=== PATIENT | female | born 2000 | race Hispanic/Latino ===

== ENCOUNTER 2018-09-02 18:51 | Emergency (ER) | payer OTHER ==
[2018-09-02] MEDS ORDERED: Ibuprofen 600 MG TAB ONE (19:20)
[2018-09-02 19:39] LABS: Bilirubin Negative (Negative); Blood, Urine Negative (Negative); Clarity Clear (Clear); Glucose, Urine (Dipstick) Negative (Negative); Leukocyte Negative (Negative); Nitrite Negative (Negative); Protein, Urine (Dipstick) Negative (Neg-Trace); Urobilinogen 0.2 mg/dL (0.2-1.0)
[2018-09-02 19:42] LABS: #Basophils 0.1 thou/uL (0.0-0.2); #Eosinphils 0.1 thou/uL (0.0-0.7); #Lymphocytes 2.2 thou/uL (1.20-3.40); #Monocytes 0.3 thou/uL (0.11-0.59); #Neutrophils 8.9 thou/uL (1.40-6.50); %Basophils 0.9 % (0.0-1.0); %Eosinophils 1.1 % (0.0-10.0); %Lymphocytes 19.1 % (28.0-48.0); %Monocytes 2.3 % (0.0-4.0); %Neutrophils 76.6 % (31.0-61.0); Hemoglobin 12.2 g/dL (12.0-16.0); Mean Corpuscular HGB CONC 32.3 g/dL (32.0-36.0); Mean Corpuscular Hemoglobin 26.9 pg (25.0-35.0); Mean Corpuscular Volume 83.3 fL (78.0-98.0); Mean Platelet Volume 11.9 fL (7.4-10.4); Platelet Count 183 thou/uL (130-400); RBC Distribution Width 12.1 % (11.5-14.5); Red Blood Cell (RBC) Count 4.53 mill/uL (4.00-5.20); White Blood Cell (WBC) Count 11.6 thou/uL (4.8-10.8)
[2018-09-02 19:55] LABS: ALT (SGPT) 27 U/L (8-55); AST (SGOT) 18 U/L (5-34); Albumin 4.1 g/dL (3.5-5.0); Alkaline Phosphatase 58 U/L (40-150); Anion Gap 14 mmol/L (10-20); BUN (Urea Nitrogen) 8 mg/dL (7.0-18.7); Bilirubin, Total 0.4 mg/dL (0.2-1.2); Calc. Creatinine Clearance 0 mL/min (70-130); Calcium 9.4 mg/dL (7.8-10.44); Carbon Dioxide 24 mmol/L (22-29); Chloride 105 mmol/L (98-107); Estimated GFR-MDRD Greater than 90; Globulin 2.8 g/dL (2.4-3.5); Glucose 120 mg/dL (70-105); Potassium 3.7 mmol/L (3.5-5.1); Protein, Total 6.9 g/dL (6.0-8.3); Sodium 139 mmol/L (136-145)
== END 2018-09-02 20:10 | disposition home or self-care (01) ==
LOC: SCSER 18:51
DX: R10.30 Lower abdominal pain, unspecified (principal); I10 Essential (primary) hypertension
CPT/HCPCS: 36415; 80053; 81003; 84702; 85025; 93005

== ENCOUNTER 2023-06-24 14:48 | Outpatient (CLI) | payer BC | END 2023-06-24 14:49 | disposition home or self-care (01) | LOC: DTY/OP 14:48 | PROVIDERS: ATTEND Surgery | DX: E66.01 Morbid (severe) obesity due to excess calories (principal) | CPT/HCPCS: 97802 ==

== ENCOUNTER 2023-08-30 13:00 | Inpatient (IN) | payer BC ==
[2023-09-07] MEDS ORDERED: Heparin 5,000 UNITS/ML VIAL ONE (11:23)
[2023-09-07] MEDS ORDERED: SUGAMMADEX SODIUM 200 MG/2 ML VIAL ONE (12:33)
[2023-09-07] MEDS ORDERED: fentaNYL PF 100 MCG/2 ML SYRINGE ONE (12:33)
[2023-09-07] MEDS ORDERED: Propofol 500 MG/50 ML VIAL ONE (12:33)
[2023-09-07] MEDS ORDERED: KETAMINE 100 MG/ML (5ML VIAL) ONE (12:33)
[2023-09-07] MEDS ORDERED: Bupivacaine 0.25% HCL 30 ML VIAL ONE (12:34)
[2023-09-07] MEDS ORDERED: EPINEPHrine 1 MG/ML VIAL ONE (12:34)
[2023-09-07] MEDS ORDERED: CEFAZOLIN 2 GM VIAL ONE (12:45)
[2023-09-07] MEDS ORDERED: Sodium Chloride 0.9% 100 ML ONE (12:45)
[2023-09-07] MEDS ORDERED: Rocuronium Bromide 10 MG/ML (10ML VIAL) ONE (12:58)
[2023-09-07] MEDS ORDERED: PROPOFOL 200 MG/20 ML VIAL ONE (12:58)
[2023-09-07] MEDS ORDERED: Esmolol 100 MG/10 ML VIAL ONE (12:58)
[2023-09-07] MEDS ORDERED: Dexamethasone 20 MG/5 ML VIAL ONE (12:58)
[2023-09-07] MEDS ORDERED: Lidocaine 1% PF 5 ML VIAL ONE (12:58)
[2023-09-07] MEDS ORDERED: Ondansetron PF 4 MG/2 ML Vial ONE (12:58)
[2023-09-07] MEDS ORDERED: NEOSTIGMINE 3 MG/3 ML SYR 3 MG/3 ML SYRINGE ONE (12:58)
[2023-09-07] MEDS ORDERED: Glycopyrrolate 0.2 MG/ML 5 ML SYRINGE ONE (12:58)
[2023-09-07] MEDS ORDERED: Ketorolac Tromethamine 30 MG/ML VIAL ONE (12:58)
[2023-09-07] MEDS ORDERED: diphenhydrAMINE 25 MG CAP PO PRN (13:27)
[2023-09-07] MEDS ORDERED: diphenhydrAMINE 50 MG/ML VIAL IVP PRN ×2 (13:27→16:31)
[2023-09-07] MEDS ORDERED: FENTANYL 500 MCG/10 ML VIAL 2,000 MCG in Sodium Chloride 0.9% 60 ML IV PRN (13:27)
[2023-09-07] MEDS ORDERED: Naloxone HCl 0.4 mg/ml Vial IV PRN (13:27)
[2023-09-07] MEDS ORDERED: Promethazine HCl 25 MG/ML VIAL IM PRN ×3 (13:27→16:31)
[2023-09-07] MEDS ORDERED: Ondansetron HCl/PF 4 MG/2 ML Vial IVP PRN (13:27)
[2023-09-07] MEDS ORDERED: diphenhydrAMINE 50 MG/ML VIAL IM PRN (13:27)
[2023-09-07] MEDS ORDERED: Communication Order-Pharmacy FS SCH (13:30)
[2023-09-07] MEDS ORDERED: Fentanyl CADD 100 ML IVPB PRN (13:44)
[2023-09-07] MEDS ORDERED: Dextrose 5% in Water 1,000 ML IV PRN (16:31)
[2023-09-07] MEDS ORDERED: Ipratropium/Albuterol 3 ML NEB NEB PRN (16:31)
[2023-09-07] MEDS ORDERED: Hydrocodone-Acetamin 15 ML UDCUP PO PRN (16:31)
[2023-09-07] MEDS ORDERED: Dextrose 50% Abboject 50 ML SYRINGE SLOW IVP PRN (16:31)
[2023-09-07] MEDS ORDERED: Ondansetron PF 4 MG/2 ML Vial IVP PRN (16:31)
[2023-09-07] MEDS ORDERED: hydrALAZINE 20 MG/ML VIAL SLOW IVP PRN (16:31)
[2023-09-07] MEDS ORDERED: Glucagon 1 MG/ML KIT IM PRN (16:31)
[2023-09-07] MEDS: Ondansetron PF 4 MG/2 ML Vial IVP PRN ×2 (17:09→22:26)
[2023-09-07] MEDS: D5 1/2 NS w/20 mEq KCL 1,000 ML IV SCH ×2 (17:09→23:24)
[2023-09-07 17:24] VITALS: BMI 39.1
[2023-09-08] MEDS ORDERED: Hydrocodone-Acetamin 15 ML UDCUP PO PRN (04:15)
[2023-09-08] MEDS: D5 1/2 NS w/20 mEq KCL 1,000 ML IV SCH (07:05)
[2023-09-08 07:06] LABS: #Neutrophils 9.1 thou/uL (1.40-6.50); %Basophils 0.2 % (0.0-1.0); %Eosinophils 0.1 % (0.0-10.0); %Lymphocytes 13.9 % (21.0-51.0); %Monocytes 8.4 % (0.0-10.0); %Neutrophils 77.1 % (42.0-75.0); Hematocrit 37.6 % (36.0-47.0); Hemoglobin 12.4 g/dL (12.0-16.0); Mean Corpuscular Hemoglobin 28.4 pg (27.0-31.0); Mean Corpuscular Volume 86.2 fl (78.0-98.0); Mean Platelet Volume 12.5 fL (7.4-10.4); Platelet Count 203 10x3/uL (130-400); RBC Distribution Width 12.3 % (11.5-14.5); Red Blood Cell (RBC) Count 4.36 mill/uL (4.20-5.40); White Blood Cell (WBC) Count 11.8 10x3/uL (4.8-10.8)
[2023-09-08 08:33] LABS: Anion Gap 13 mmol/L (10-20); BUN (Urea Nitrogen) 5 mg/dL (7.0-18.7); Calc. Creatinine Clearance 213 mL/min (70-130); Calcium 9.1 mg/dL (7.8-10.44); Carbon Dioxide 22 mmol/L (22-29); Chloride 108 mmol/L (98-107); Estimated GFR 124; Glucose 113 mg/dL (70-105); Potassium 3.7 mmol/L (3.5-5.1); Sodium 139 mmol/L (136-145)
[2023-09-08] MEDS ORDERED: Pantoprazole 40 MG VIAL IVP SCH (09:00)
[2023-09-08 11:53] VITALS: BP 129/84; TEMP 98.5
== END 2023-09-08 11:58 | disposition home or self-care (01) | DRG 621 ==
LOC: SURG A 09-07 10:02 → SURG B 09-07 16:12
PROVIDERS: ADMIT Surgery; ATTEND Surgery
PROC: 0DB64Z3 Excision of Stomach, Percutaneous Endoscopic Approach, Vertical (ICD-10-PCS; principal; 2023-09-07)
PROC: 8E0W4CZ Robotic Assisted Procedure of Trunk Region, Percutaneous Endoscopic Approach (ICD-10-PCS; 2023-09-07)
DX: E66.01 Morbid (severe) obesity due to excess calories (principal); Z68.41 Body mass index [BMI] 40.0-44.9, adult; E11.9 Type 2 diabetes mellitus without complications
CPT/HCPCS: 36415; 80048; 85025; 88307; C9113; J0171; J1100; J1644; J1650; J1885; J2405; J2704; J3480; J3490; S0020

== ENCOUNTER 2023-09-02 08:12 | Outpatient (CLI) | payer BC ==
[2023-09-02 09:22] LABS: #Basophils 0.1 10x3/uL (0.0-0.2); #Eosinphils 0.1 10x3/uL (0.0-0.5); #Monocytes 0.5 10x3/uL (0.0-1.1); #Neutrophils 4.7 10x3/uL (1.5-8.4); %Basophils 0.7 % (0.0-2.0); %Eosinophils 1.4 % (0.0-6.0); %Neutrophils 65.5 % (40.0-75.0); Hematocrit 42.3 % (34.9-44.5); Hemoglobin 13.8 g/dL (12.0-15.5); Mean Corpuscular HGB CONC 32.6 g/dL (32.0-36.0); Mean Corpuscular Hemoglobin 27.9 pg (27.0-33.0); Mean Corpuscular Volume 85.5 fl (81.6-98.3); Mean Platelet Volume 12.2 fl (7.4-10.4); Platelet Count 220 10x3/uL (150-450); RBC Distribution Width 12.2 % (11.5-14.5); Red Blood Cell (RBC) Count 4.95 10x6/uL (3.90-5.03); White Blood Cell (WBC) Count 7.2 10x3/uL (3.5-10.5)
[2023-09-02 09:49] LABS: BHCG - Serum Negative (NEGATIVE)
[2023-09-02 09:50] LABS: Pregs Control Background? CLEAR/WHITE (CLR/WHITE); Pregs Control Bar Appear? YES (CONTROL BAR)
[2023-09-02 10:01] LABS: Anion Gap 16 mmol/L (10-20); BUN (Urea Nitrogen) 11 mg/dL (7.0-18.7); Calc. Creatinine Clearance 0 mL/min (70-130); Calcium 9.2 mg/dL (7.8-10.44); Carbon Dioxide 22 mmol/L (22-29); Chloride 106 mmol/L (98-107); Estimated GFR 123; Glucose 90 mg/dL (70-105); Potassium 4.2 mmol/L (3.5-5.1); Sodium 140 mmol/L (136-145)
== END 2023-09-02 08:13 | disposition home or self-care (01) ==
LOC: LABBT 08:12
PROVIDERS: ATTEND Surgery
DX: Z01.818 Encounter for other preprocedural examination (principal); E66.01 Morbid (severe) obesity due to excess calories
CPT/HCPCS: 80048; 84703; 85025; 93005; 93010

== ENCOUNTER 2023-09-21 12:40 | Day surgery (SDC) | payer BC ==
[~2023-09-21 12:40] MED LIST: Ondansetron PF 4 MG/2 ML Vial IVP PRN; Sodium Chloride 0.9% 1,000 ML IV SCH; Thiamine HCl 100 MG, Multivitamins, Adult 10 ML in Sodium Chloride 0.9% 1,000 ML IVPB SCH
[2023-09-21 13:08] VITALS: BP 120/58; TEMP 97.8
[2023-09-21] MEDS ORDERED: FLU VACC QS2023-24(6MOS UP)/PF 60 MCG/0.5 ML SYRINGE IM ONE (14:00)
== END 2023-09-21 16:00 | disposition home or self-care (01) ==
LOC: ONC/OP 12:40
PROVIDERS: ATTEND Surgery
DX: E86.0 Dehydration (principal)
CPT/HCPCS: 96360; 96361; J3411; J7050

== ENCOUNTER 2023-10-12 12:55 | Day surgery (SDC) | payer BC ==
[2023-10-12 13:42] VITALS: BP 115/59; TEMP 98.2
[2023-10-12] MEDS ORDERED: FLU VACC QS2023-24(6MOS UP)/PF 60 MCG/0.5 ML SYRINGE IM ONE (15:00)
== END 2023-10-12 16:02 | disposition home or self-care (01) ==
LOC: ONC/OP 12:55
PROVIDERS: ATTEND Surgery
DX: E86.0 Dehydration (principal)
CPT/HCPCS: 96360; 96361; J3411; J7050